=== PATIENT | female | born 1960 | race African-American/Black ===

== ENCOUNTER 2023-03-18 08:11 | Emergency (ER) | payer OTHER, SELFPAY ==
[2023-03-18] MEDS ORDERED: Ketorolac Tromethamine 30 MG/ML VIAL ONE (08:41)
[2023-03-18] MEDS ORDERED: Acetaminophen/Codeine 30-300mg Tablet ONE (10:03)
== END 2023-03-18 10:09 | disposition home or self-care (01) ==
LOC: ERS 08:11
DX: S80.02XA Contusion of left knee, initial encounter (principal); S33.5XXA Sprain of ligaments of lumbar spine, initial encounter; I10 Essential (primary) hypertension; F17.210 Nicotine dependence, cigarettes, uncomplicated; W01.0XXA Fall on same level from slipping, tripping and stumbling without subsequent striking against object, initial encounter
CPT/HCPCS: 72100; 96374; J1885

== ENCOUNTER 2023-08-28 11:37 | Emergency (ER) | payer SELFPAY ==
[2023-08-28 12:25] LABS: #Eosinphils 0.2 thou/uL (0.0-0.7); #Monocytes 0.8 thou/uL (0.11-0.59); #Neutrophils 2.3 thou/uL (1.40-6.50); %Basophils 0.4 % (0.0-1.0); %Eosinophils 4.3 % (0.0-10.0); %Lymphocytes 33.7 % (21.0-51.0); %Monocytes 16.4 % (0.0-10.0); Hematocrit 42.6 % (36.0-47.0); Mean Corpuscular HGB CONC 32.9 g/dL (32.0-36.0); Mean Corpuscular Hemoglobin 29.4 pg (27.0-31.0); Mean Corpuscular Volume 89.5 fl (78.0-98.0); Mean Platelet Volume 11.2 fL (7.4-10.4); Platelet Count 166 10x3/uL (130-400); RBC Distribution Width 12.7 % (11.5-14.5); Red Blood Cell (RBC) Count 4.76 mill/uL (4.20-5.40); White Blood Cell (WBC) Count 5.1 10x3/uL (4.8-10.8)
[2023-08-28] MEDS ORDERED: Acetaminophen 500 MG TAB ONE (12:27)
[2023-08-28 12:43] LABS: ALT (SGPT) 30 U/L (8-55); AST (SGOT) 46 U/L (5-34); Albumin 3.3 g/dL (3.4-4.8); Alkaline Phosphatase 75 U/L (40-110); Anion Gap 13 mmol/L (10-20); BUN (Urea Nitrogen) 12 mg/dL (9.8-20.1); Bilirubin, Total 0.5 mg/dL (0.2-1.2); CK (CPK) 52 U/L (29-168); Calc. Creatinine Clearance 0 mL/min (70-130); Calcium 8.7 mg/dL (7.8-10.44); Carbon Dioxide 26 mmol/L (23-31); Chloride 105 mmol/L (98-107); Estimated GFR 97; Globulin 3.7 g/dL (2.4-3.5); Glucose 171 mg/dL (80-115); Potassium 3.5 mmol/L (3.5-5.1); Sodium 140 mmol/L (136-145)
[2023-08-28 13:55] LABS: Bacteria/HPF 4+ HPF (None Seen); Bilirubin Negative (Negative); Blood, Urine 1+ (Negative); CAUTI Indications for Culture Pelvic or flank pain; Clarity Turbid (Clear); Glucose, Urine (Dipstick) Normal (Negative); Ketone, Urine Negative (Negative); Leukocyte 500 Leu/uL (Negative); Nitrite 2+ (Negative); Protein, Urine (Dipstick) 20 mg/dL (Neg-Trace); Specific Gravity, Urine 1.017 (1.002-1.036); Urobilinogen 6 mg/dL (Less than 2); WBC/HPF Greater than 50 HPF (0-3)
[2023-08-28 13:56] LABS: Urine Culture Reflex Yes Yes
== END 2023-08-28 14:41 | disposition home or self-care (01) ==
LOC: ERS 11:37
DX: N39.0 Urinary tract infection, site not specified (principal); G89.29 Other chronic pain; M54.9 Dorsalgia, unspecified; M79.661 Pain in right lower leg; M79.662 Pain in left lower leg; E11.9 Type 2 diabetes mellitus without complications; I10 Essential (primary) hypertension; Z79.84 Long term (current) use of oral hypoglycemic drugs; Z79.899 Other long term (current) drug therapy
CPT/HCPCS: 36415; 80053; 81001; 82550; 85025; 87077; 87086; 96360; 96361

== ENCOUNTER 2024-01-01 13:16 | Outpatient (CLI) | payer OTHER | END 2024-01-01 13:17 | disposition home or self-care (01) | LOC: BICCT 13:16 | PROVIDERS: ATTEND Student in an Organized Health Care Education/Training Program | DX: I73.9 Peripheral vascular disease, unspecified (principal); K55.069 Acute infarction of intestine, part and extent unspecified; I70.1 Atherosclerosis of renal artery; I70.8 Atherosclerosis of other arteries | CPT/HCPCS: 75635; 82565 ==

== ENCOUNTER 2024-01-01 19:06 | Inpatient (IN) | payer OTHER ==
[2024-01-01] MEDS ORDERED: Morphine 4 MG/ML VIAL ONE ×2 (20:12→21:21)
[2024-01-01] MEDS ORDERED: Ondansetron PF 4 MG/2 ML Vial ONE (20:12)
[2024-01-01 20:54] LABS: #Basophils 0.04 10x3/uL (0.0-0.2); %Basophils 0.4 % (0.0-1.0); %Eosinophils 1.5 % (0.0-10.0); %Lymphocytes 30.8 % (21.0-51.0); %Monocytes 11.6 % (0.0-10.0); %Neutrophils 55.4 % (42.0-75.0); Hematocrit 36.1 % (36.0-47.0); Hemoglobin 12.1 g/dL (12.0-16.0); Mean Corpuscular HGB CONC 33.5 g/dL (32.0-36.0); Mean Corpuscular Hemoglobin 28.5 pg (27.0-31.0); Mean Corpuscular Volume 84.9 fL (78.0-98.0); Mean Platelet Volume 10.5 fL (7.4-10.4); Platelet Count 328 10x3/uL (130-400); Red Blood Cell (RBC) Count 4.25 mill/uL (4.20-5.40)
[2024-01-01 21:12] LABS: ALT (SGPT) 15 U/L (8-55); AST (SGOT) 23 U/L (5-34); Albumin 2.6 g/dL (3.4-4.8); Alkaline Phosphatase 76 U/L (40-110); Anion Gap 11 mmol/L (10-20); BUN (Urea Nitrogen) 10 mg/dL (9.8-20.1); Bilirubin, Total 0.6 mg/dL (0.2-1.2); Calc. Creatinine Clearance 0 mL/min (70-130); Calcium 8.8 mg/dL (7.8-10.44); Carbon Dioxide 22 mmol/L (23-31); Chloride 113 mmol/L (98-107); Estimated GFR 99; Globulin 4.4 g/dL (2.4-3.5); Glucose 95 mg/dL (80-115); Potassium 3.2 mmol/L (3.5-5.1); Sodium 143 mmol/L (136-145)
[2024-01-01 21:16] LABS: INR-International Normal Ratio 1.1
[2024-01-01] MEDS ORDERED: Potassium Chloride 20 MEQ TAB ONE (21:22)
[2024-01-01] MEDS ORDERED: Ondansetron ODT 4 MG TAB PO PRN (21:46)
[2024-01-01] MEDS ORDERED: Ondansetron PF 4 MG/2 ML Vial IVP PRN (21:46)
[2024-01-01] MEDS ORDERED: Glucagon 1 MG/ML KIT IM PRN (21:48)
[2024-01-01] MEDS ORDERED: Dextrose 5% in Water 1,000 ML IV PRN (21:48)
[2024-01-01] MEDS ORDERED: Dextrose 50% Abboject 50 ML SYRINGE SLOW IVP PRN (21:48)
[2024-01-01] MEDS ORDERED: HumaLOG 300 UNITS/3 ML VIAL SC PRN ×2 (21:48)
[2024-01-01] MEDS ORDERED: hydrALAZINE 20 MG/ML VIAL SLOW IVP PRN (21:55)
[2024-01-01 22:43] LABS: Magnesium 1.7 mg/dL (1.6-2.6); Phosphorus 2.7 mg/dL (2.3-4.7)
[2024-01-01 23:38] VITALS: BMI 22.8
[2024-01-02] MEDS: traMADol HCl 50 MG TAB PO PRN (00:02)
[2024-01-02] MEDS: Cefepime 1 GM in Sodium Chloride 0.9% 100 ML IVPB SCH (00:02)
[2024-01-02] MEDS: Potassium Chloride 20 MEQ TAB PO SCH (00:03)
[2024-01-02] MEDS: Acetaminophen 325 MG TAB PO SCH (00:03)
[2024-01-02] MEDS: Vancomycin (BATCH) 1.75 GM in Premix 1 BAG IVPB SCH (01:05)
[2024-01-02 07:05] LABS: #Basophils 0.04 10x3/uL (0.0-0.2); %Basophils 0.5 % (0.0-1.0); %Eosinophils 2.2 % (0.0-10.0); %Lymphocytes 23.1 % (21.0-51.0); %Monocytes 12.6 % (0.0-10.0); %Neutrophils 61.3 % (42.0-75.0); Hematocrit 38.8 % (36.0-47.0); Hemoglobin 12.5 g/dL (12.0-16.0); Mean Corpuscular HGB CONC 32.2 g/dL (32.0-36.0); Mean Corpuscular Hemoglobin 28.3 pg (27.0-31.0); Mean Corpuscular Volume 87.8 fL (78.0-98.0); Mean Platelet Volume 10.1 fL (7.4-10.4); Platelet Count 298 10x3/uL (130-400); RBC Distribution Width 14.3 % (11.5-14.5); Red Blood Cell (RBC) Count 4.42 mill/uL (4.20-5.40)
[2024-01-02 07:19] LABS: ALT (SGPT) 14 U/L (8-55); AST (SGOT) 22 U/L (5-34); Albumin 2.4 g/dL (3.4-4.8); Alkaline Phosphatase 70 U/L (40-110); Anion Gap 11 mmol/L (10-20); BUN (Urea Nitrogen) 6 mg/dL (9.8-20.1); Bilirubin, Total 0.7 mg/dL (0.2-1.2); Calc. Creatinine Clearance 105 mL/min (70-130); Calcium 8.4 mg/dL (7.8-10.44); Carbon Dioxide 22 mmol/L (23-31); Chloride 114 mmol/L (98-107); Estimated GFR 100; Globulin 4.1 g/dL (2.4-3.5); Glucose 92 mg/dL (80-115); Potassium 3.7 mmol/L (3.5-5.1); Protein, Total 6.5 g/dL (5.8-8.1); Sodium 143 mmol/L (136-145)
[2024-01-02 07:22] LABS: Vancomycin, Random 17.7 ug/mL (See Comment)
[2024-01-02] MEDS ORDERED: Lidocaine 1% PF 5 ML VIAL ONE (08:11)
[2024-01-02] MEDS ORDERED: Ondansetron PF 4 MG/2 ML Vial ONE (08:11)
[2024-01-02] MEDS ORDERED: SUGAMMADEX SODIUM 200 MG/2 ML VIAL ONE (08:11)
[2024-01-02] MEDS ORDERED: fentaNYL PF 100 MCG/2 ML SYRINGE ONE ×3 (08:11→10:59)
[2024-01-02] MEDS ORDERED: Rocuronium Bromide 10 MG/ML (10ML VIAL) ONE (08:11)
[2024-01-02] MEDS ORDERED: PROPOFOL 20 ML ONE (08:11)
[2024-01-02] MEDS ORDERED: Dexamethasone 4 mg/ml Vial ONE (08:11)
[2024-01-02] MEDS ORDERED: Lidocaine 1% (PF) 30 ML VIAL ONE (08:15)
[2024-01-02] MEDS ORDERED: Lidocaine 2% PF 5 ML VIAL ONE (08:49)
[2024-01-02] MEDS ORDERED: Vancomycin 1 GM in Premix 1 BAG IVPB SCH (09:00)
[2024-01-02] MEDS ORDERED: Ondansetron HCl/PF 4 MG/2 ML Vial IVP PRN (09:13)
[2024-01-02] MEDS ORDERED: Promethazine HCl 25 MG/ML VIAL IM PRN (09:13)
[2024-01-02] MEDS ORDERED: PHENYLEPHRINE-NS 100 MCG/ML 10 ML SYRINGE ONE (09:48)
[2024-01-02] MEDS: Pantoprazole DR 40 MG TAB PO SCH (12:39)
[2024-01-02] MEDS: Amlodipine 5 MG TAB PO SCH (12:39)
[2024-01-02] MEDS: Famotidine 20 MG TAB PO SCH (12:39)
[2024-01-02] MEDS: Heparin 5,000 UNITS/ML VIAL SC SCH (12:39)
[2024-01-02] MEDS: Vancomycin (BATCH) 1.25 GM in Premix 1 BAG IVPB SCH (13:31)
[2024-01-02] MEDS: Ketorolac Tromethamine 30 MG (1 mL) VIAL IVP SCH ×2 (13:34→20:15)
[2024-01-02] MEDS ORDERED: Insulin Lispro 100 UNIT/ML 10 ML VIAL SC PRN (15:00)
[2024-01-02] MEDS: Gabapentin 300 MG CAP PO SCH (16:04)
[2024-01-02] MEDS: oxyCODONE 5 MG TAB PO PRN (16:11)
[2024-01-02] MEDS: Insulin Lispro 100 UNIT/ML 10 ML VIAL SC PRN (19:13)
[2024-01-02] MEDS: Atorvastatin Calcium 40 MG TAB PO SCH (20:17)
[2024-01-02] MEDS ORDERED: Atorvastatin Calcium 20 MG TAB PO SCH (21:00)
[2024-01-02] MEDS: Cefepime 2 GM in Sodium Chloride 0.9% 100 ML IVPB SCH (23:31)
[2024-01-03] MEDS: metFORMIN 500 MG TAB PO SCH (07:48)
[2024-01-03] MEDS: Aspirin 325 MG TAB PO SCH (07:48)
[2024-01-03] MEDS: Cefepime 2 GM in Sodium Chloride 0.9% 100 ML IVPB SCH (23:02)
[2024-01-04] MEDS ORDERED: Senokot 8.6 MG TAB PO PRN (10:01)
[2024-01-04] MEDS: Polyethylene Glycol 3350 17 GM Packet PO SCH (10:14)
[2024-01-07] MEDS: Amlodipine 10 MG TAB PO SCH (09:27)
[2024-01-07 11:49] VITALS: BP 154/70; TEMP 97.1
== END 2024-01-07 14:17 | DRG 239 ==
LOC: ERS 19:06 → SURG A 21:36
PROVIDERS: ADMIT Internal Medicine; ATTEND Internal Medicine
PROC: 0Y6H0Z1 Detachment at Right Lower Leg, High, Open Approach (ICD-10-PCS; principal; 2024-01-02)
DX: E11.51 Type 2 diabetes mellitus with diabetic peripheral angiopathy without gangrene (principal); M72.6 Necrotizing fasciitis; L97.919 Non-pressure chronic ulcer of unspecified part of right lower leg with unspecified severity; E11.622 Type 2 diabetes mellitus with other skin ulcer; I10 Essential (primary) hypertension; E78.5 Hyperlipidemia, unspecified; K21.9 Gastro-esophageal reflux disease without esophagitis; F17.210 Nicotine dependence, cigarettes, uncomplicated; Z79.84 Long term (current) use of oral hypoglycemic drugs; Z79.82 Long term (current) use of aspirin; Z79.899 Other long term (current) drug therapy; Z88.0 Allergy status to penicillin; M19.90 Unspecified osteoarthritis, unspecified site; F32.A Depression, unspecified; E87.6 Hypokalemia; Z79.4 Long term (current) use of insulin
CPT/HCPCS: 36415; 36416; 71045; 80053; 80202; 82565; 83735; 84100; 85025; 85610; 85730; 86850; 86900; 86901; 87040; 87070; 87076; 87077; 87186; 87205; 88307; 88311; 93005; 96374; 96375; 96376; J0692; J1100; J1644; J1815; J1885; J2001; J2270; J2405; J2704; J3370; J3490

== ENCOUNTER 2024-04-05 21:09 | Emergency (ER) | payer OTHER | END 2024-04-05 21:47 | disposition home or self-care (01) | LOC: ERS 21:09 | DX: L89.899 Pressure ulcer of other site, unspecified stage (principal); E11.622 Type 2 diabetes mellitus with other skin ulcer; I10 Essential (primary) hypertension | CPT/HCPCS: 99282 ==